=== PATIENT | female | born 1960 | race Caucasian/White ===

== ENCOUNTER → 2016-10-23 | Day surgery (SDC) | payer OTHER ==
--- NOTE | 2016-10-22 16:52 | History & Physical Pre-Op ---
General Information and HPI History of Present Illness: Mikaela is a 56-year-old female with a long-standing and worsening complaint of painful hammertoes right foot. The patient has undergone an extended course of conservative care, including shoe gear and activity modification, rest, immobilization and courses of NSAIDs. None of this is yielded her any significant relief. The patient presents today for preoperative surgical consultation. Allergies/Medications Allergies: Coded Allergies: No Known Allergies (10/19/16) Past History Surgical History Pertinent Surgical History: non-contributory Review of Systems Review of Systems: Unremarkable except for that noted in history of present illness Exam & Diagnostic Data Physical Exam: Lungs clear bilaterally. Heart sounds rate and rhythm regular. Lower extremity physical exam demonstrates intact pedal pulses bilaterally. Pulses dorsalis pedis and posterior tibial arteries are palpable bilaterally. Patient without any sensory motor deficits. Deep tendon reflexes grossly intact. Patient noted to have significant pain with palpation or range of motion through the right fourth and fifth digits. Assessment/Plan Assessment/Plan: Painful hammertoes right foot. A lengthy discussion reviewing both surgical and conservative options was held the patient at bedside and the patient elects to go forward with surgery despite the risks. As Ranked By This Provider Problem List: 1. Other hammer toe(s) (acquired), right foot Attending MD Review Statement Attending Statement Attending MD Statement: examined this patient
[~2016-10-23] VITALS: Ht 162.6 cm; Wt 58.1 kg
--- NOTE | 2016-10-23 11:01 | Operative Report ---
Operative/Inv Procedure Report Surgery Date: 10/23/16 Name of Procedure: 1 arthroplasty fourth toe right foot 2 arthroplasty fifth toe right foot 3 intraoperative administration of ankle block anesthesia Pre-Operative Diagnosis: 1 hammertoe fourth toe right foot 2 hammertoe fifth toe right foot Post-Operative Diagnosis: Same Estimated Blood Loss: scant Surgeon/Replenishment Associate: CHERYL SPARKS DPM Anesthesia: moderate sedation, block Operative/Procedure Note Note: After obtaining informed consent the patient was brought to the operating room and placed on the operating table in the supine position. The patient was then securely fastened to the operating table utilizing safety belt. After administration of IV sedation, 10 mL of 0.5% Marcaine plain was infiltrated about the patient's right ankle. Well-padded ankle tourniquet was placed about the patient's right lower extremity. 2 g of Ancef were delivered intravenously times one dose. The right foot and ankle within scrubbed prepped and draped in usual aseptic fashion. The right lower extremity was elevated to examine to limb, which point the ankle tourniquet was inflated 250 mmHg. Attention directed to the fourth fifth toes where 2 curvilinear semielliptical incisions centered over the proximal phalangeal joints of the fourth fifth digits were incised with a 15 blade. The underlying soft tissue attachments about the ellipses of skin were freed and they were passed from the operative field. Transverse tenotomies were then performed at the level of the proximal phalangeal joint exposing the head of the proximal phalanges. These were then resected with a sagittal bone saw. The wounds were irrigated with copious Svensson normal sterile saline. The extensor tendons were then reapproximated 4 -0 Vicryl and the skin edges reprepped with 4-0 nylon. The incisions were then dressed with Xeroform 4 x 4's Kerlix and an Tc wrap. Patient was noted to tolerate both procedure and anesthesia well and the patient was transported from the operating room to recovery by sent stable best assess intact all digits right foot.
== END ==
LOC: STS 03:59
DX: M20.41 Other hammer toe(s) (acquired), right foot (principal)
CPT/HCPCS: 88304; 88305; J0690; J2001; J2250